=== PATIENT | male | born 1965 | race Caucasian/White ===

== ENCOUNTER 2019-06-03 14:58 | Outpatient (CLI) | payer OTHER | END 2019-06-03 23:59 | disposition home or self-care (01) | LOC: STAR 14:58 | PROVIDERS: ATTEND Neurological Surgery | DX: Z01.818 Encounter for other preprocedural examination (principal); M54.16 Radiculopathy, lumbar region; M43.15 Spondylolisthesis, thoracolumbar region; M54.5 Low back pain | CPT/HCPCS: 36415; 71046; 80048; 81001; 85025; 85610; 85730; 93005 ==

== ENCOUNTER 2019-06-17 05:39 | Inpatient (IN) | payer OTHER ==
[~2019-06-17] VITALS: Ht 190.5 cm; Wt 124.7 kg
[2019-06-19 09:28] VITALS: BP 106/63
== END 2019-06-19 10:04 | disposition home or self-care (01) | DRG 455 ==
LOC: ORIP 05:39 → 4NOR 10:15 → DCLOUNGE 06-19 09:51
PROVIDERS: ADMIT Neurological Surgery; ATTEND Neurological Surgery
PROC: 0SG30A0 Fusion of Lumbosacral Joint with Interbody Fusion Device, Anterior Approach, Anterior Column, Open Approach (ICD-10-PCS; principal; 2019-06-17)
PROC: 0SB40ZZ Excision of Lumbosacral Disc, Open Approach (ICD-10-PCS; 2019-06-17)
PROC: 4A11X4G Monitoring of Peripheral Nervous Electrical Activity, Intraoperative, External Approach (ICD-10-PCS; 2019-06-17)
PROC: 0SG3071 Fusion of Lumbosacral Joint with Autologous Tissue Substitute, Posterior Approach, Posterior Column, Open Approach (ICD-10-PCS; 2019-06-18)
PROC: 4A11X4G Monitoring of Peripheral Nervous Electrical Activity, Intraoperative, External Approach (ICD-10-PCS; 2019-06-18)
DX: M48.07 Spinal stenosis, lumbosacral region (principal); F12.90 Cannabis use, unspecified, uncomplicated; E66.9 Obesity, unspecified; G89.29 Other chronic pain; M43.17 Spondylolisthesis, lumbosacral region; M47.27 Other spondylosis with radiculopathy, lumbosacral region; Z68.34 Body mass index [BMI] 34.0-34.9, adult; Z88.0 Allergy status to penicillin; Z87.891 Personal history of nicotine dependence
CPT/HCPCS: 36415; 72100; 72131; 74018; 80048; 85025; C1713; C1767; C1776; G0378; J0690; J1100; J1170; J1650; J2250; J2405; J2704; J2710; J3010; J3360; J3370; C1763; J0330; J3480; J7120